=== PATIENT | female | born 1985 | race African-American/Black ===

== ENCOUNTER 2016-11-20 23:04 | Inpatient (IN) | payer MEDICAID ==
[2016-11-21 02:40] LABS: APPEARANCE,URINE TURBID; BILIRUBIN,URINE NEGATIVE (NEGATIVE); GLUCOSE, URINE NEGATIVE (NEGATIVE); KETONES,URINE NEGATIVE (NEGATIVE); LEUKOCYTE ESTERASE,URINE TRACE (NEGATIVE); NITRITE,URINE NEGATIVE (NEGATIVE); PROTEIN,URINE NEGATIVE (NEGATIVE); URINE SPECIFIC GRAVITY 1.019; UROBILINOGEN,URINE NEGATIVE mg/dL (<2.0)
[2016-11-21 03:16] LABS: HEMATOCRIT 43.9 % (36.0-47.0); HEMOGLOBIN 13.9 g/dL (12.0-15.5); HGB HCT DIFFERENCE -2.2; MEAN CORPUSCULAR HEMOGLOBIN 26.9 pg (27.0-33.4); MEAN CORPUSCULAR HGB CONC 31.6 g/dL (32.0-36.0); MEAN CORPUSCULAR VOLUME 85 fl (80-97); RED BLOOD COUNT 5.16 10^6/uL (3.72-5.28); RED CELL DISTRIBUTION WIDTH 14.8 % (11.5-14.0); WHITE BLOOD COUNT 17.5 10^3/uL (4.0-10.5)
[2016-11-21 03:19] LABS: BAND NEUTROPHILS % (MANUAL) 3 % (3-5); BASOPHILS % (MANUAL) 0 % (0-2); EOSINOPHILS % (MANUAL) 0 % (0-6); LYMPHOCYTES % (MANUAL) 6 % (13-45); TOTAL CELLS COUNTED 100
[2016-11-21 03:20] LABS: ANISOCYTOSIS SLIGHT; BURR CELLS SLIGHT; HYPOCHROMASIA SLIGHT; OVALOCYTES SLIGHT; POIKILOCYTOSIS SLIGHT; TEAR DROP CELLS SLIGHT; TOXIC GRANULATION SLIGHT
[2016-11-21 03:42] LABS: ALANINE AMINOTRANSFERASE 666 U/L (9-52); ALBUMIN 3.9 g/dL (3.5-5.0); ALKALINE PHOSPHATASE 278 U/L (38-126); ANION GAP 12 (5-19); ASPARTATE AMINO TRANSFERASE 622 U/L (14-36); BILIRUBIN,TOTAL 1.1 mg/dL (0.2-1.3); BLOOD UREA NITROGEN 13 mg/dL (7-20); CALCIUM 9.5 mg/dL (8.4-10.2); CARBON DIOXIDE 24 mmol/L (22-30); CHLORIDE 106 mmol/L (98-107); CREATININE RESULT 0.77 mg/dL (0.52-1.25); GLUCOSE 103 mg/dL (75-110); LIPASE 44.7 U/L (23-300); POTASSIUM 4.6 mmol/L (3.6-5.0); SODIUM 142.1 mmol/L (137-145)
--- NOTE | 2016-11-21 03:49 | ER Document Report ---
ED General - General Chief Complaint: Abdominal Pain Stated Complaint: MIDDLE ABDOMINAL PAIN Notes: Patient is 31-year-old female presents with complaint of upper abdominal pain. She points to mainly the epigastric and right upper quadrant of her abdomen as to where the pain has been. Started today. Some nausea. Some diarrhea. Patient did have a emergency 30 days ago. She's had no complications from that. She denies having pain like this in the past. She denies any lower abdominal pain. No blood in her stool. No other complaints at this time. TRAVEL OUTSIDE OF THE [place] IN LAST 30 DAYS: No - Related Data Allergies/Adverse Reactions: No Known Allergies Allergy (Verified 08/19/16 09:21) Past Medical History - Social History Smoking Status: Unknown if Ever Smoked Frequency of alcohol use: None Drug Abuse: None Family History: Reviewed & Not Pertinent Patient has suicidal ideation: No Patient has homicidal ideation: No Renal/ Medical History: Denies: Hx Peritoneal Dialysis - Immunizations Hx Diphtheria, Pertussis, Tetanus Vaccination: Yes Review of Systems - Review of Systems Notes: My Normal Review Basic REVIEW OF SYSTEMS: CONSTITUTIONAL : Denies fever, chills, or sweats. Denies recent illness. CARDIOVASCULAR: Denies chest pain. RESPIRATORY: Denies cough, cold, or chest congestion. Denies shortness of breath, difficulty breathing, or wheezing. GASTROINTESTINAL: Moderate upper abdominal pain. Some nausea and diarrhea.. Denies constipation. GENITOURINARY: Denies difficulty urinating, painful urination, burning, frequency, or blood in urine. FEMALE GENITOURINARY: Denies vaginal bleeding, abnormal or irregular periods. MUSCULOSKELETAL: Denies neck or back pain or joint pain or swelling. SKIN: Denies rash or skin lesions. NEUROLOGICAL: Denies altered mental status or loss of consciousness. Denies headache. Denies weakness or paralysis or loss of use of either side. Denies problems with gait or speech. Denies sensory or motor loss. ALL OTHER SYSTEMS REVIEWED AND NEGATIVE. Physical Exam - Vital signs Vitals: Temp Pulse Resp BP Pulse Ox 97.6 F 98 18 149/89 H 99 11/20/16 23:15 11/20/16 23:15 11/20/16 23:15 11/20/16 23:15 11/20/16 23:15 - Notes Notes: General Appearance: Well nourished, alert, cooperative, no acute distress, mild to moderate obvious discomfort. Vitals: reviewed, See vital signs table. Head: no swelling or tenderness to the head Eyes: PERRL, EOMI, Conjuctiva clear Mouth: No decreasd moisture Neck: Supple, no neck tenderness, No thyromegaly Lungs: No wheezing, No rales, No rhonci, No accessory muscle use, good air exchange bilaterally. Heart: Normal rate, Regular rythm, No murmur, no rub Abdomen: Normal BS, soft, No rigidity, mild upper abdominal tenderness to palpation. No lower abdominal tenderness to palpation., No guarding, no rebound , no abdominal masses, no organomegaly Extremities: strength 5/5 in all extremities, good pulses in all extremities, no swelling or tenderness in the extremities, no edema. Skin: warm, dry, appropriate color, no rash Neuro: speech clear, oriented x 3, normal affect, responds appropriately to questions. Course - Vital Signs Vital signs: Temp Pulse Resp BP Pulse Ox 98.6 F 91 16 132/86 H 100 11/21/16 03:23 11/21/16 03:23 11/21/16 03:23 11/21/16 03:23 11/21/16 03:23 - Laboratory Result Diagrams: 11/21/16 02:20 11/21/16 03:00 Laboratory results interpreted by me: 11/21/16 11/21/16 11/21/16 01:45 02:20 03:00 WBC 17.5 H MCH 26.9 L MCHC 31.6 L RDW 14.8 H Seg Neuts % (Manual) 84 H Lymphocytes % (Manual) 6 L Abs Neuts (Manual) 15.2 H AST 622 H ALT 666 H Alkaline Phosphatase 278 H Ur Leukocyte Esterase TRACE H Urine Ascorbic Acid 40 H - Transfer of Care Notes: 11/21/16 05:21 Patient has elevated liver enzymes, leukocytosis, and cholelithiasis. I think this is most likely why the patient 7 diarrhea, vomiting, and upper abdominal pain. I did speak with Dr. Siu, general surgeon, who agrees to come evaluate the patient. Discharge - Discharge Clinical Impression: Cholelithiasis Qualifiers: Cholelithiasis location: gallbladder Cholecystitis presence: without cholecystitis Biliary obstruction: without biliary obstruction Qualified Code(s) : K80.20 - Calculus of gallbladder without cholecystitis without obstruction Leukocytosis Qualifiers: Leukocytosis type: unspecified Qualified Code(s): D72.829 - Elevated white blood cell count, unspecified Condition: Stable Disposition: ADMITTED INPATIENT Admitting Provider: Surgicalist Unit Admitted: Surgical Floor Referrals: CHUCHO KEEN MD [Primary Care Provider] - Follow up as needed
[2016-11-21] MEDS ORDERED: ERTAPENEM SODIUM INJ 1 GM VIAL IV ONE (05:20)
[2016-11-21] MEDS ORDERED: NORMAL SALINE 1000 ML 1,000 ML IV ONE (05:40)
[2016-11-21] MEDS ORDERED: ONDANSETRON HCL INJ/PF 4 MG/2 ML SDV IV PRN (06:11)
[2016-11-21] MEDS ORDERED: MORPHINE SULFATE 10 MG/ML INJ IV PRN (06:11)
--- NOTE | 2016-11-21 06:23 | PDOC H&P ---
History of Present Illness Admission Date/PCP: CHUCOH KEEN MD abdominal pain nausea and vomiting History of Present Illness: EWELINA ALEX is a 31 year old female presents to the emergency department via EMS complaining of abdominal pain nausea and vomiting. Symptoms started approximate 48 hours ago. She denies previous episodes. She denies history of trauma, history of GI problems, or change in her bowel habits. Today her pain was worse into the emergency department where she was found to have significant right upper quadrant tenderness, leukocytosis and abnormal liver function studies. Gallbladder ultrasound revealed cholelithiasis. Surgery was consulted and she was advised admission Patient's stools have been loose today. She is one-month status post section, also [facility], by Dr. Rashi Farnsworth. Social History Smoking Status: Unknown if Ever Smoked Family History Family History: Reviewed & Not Pertinent Parental Family History Reviewed: Yes Children Family History Reviewed: Yes Sibling(s) Family History Reviewed.: Yes Medication/Allergy Home Medications: Pnv W-O Ca No5/Fe Fumarate/FA [-U Capsule] 1 each PO DAILY 06/12/12 Acetaminophen with Codeine [Tylenol #3 Tablet] 1 each PO Q4HP PRN #30 tablet Docusate Sodium [Colace 100 mg Capsule] 100 mg PO BID #90 capsule 10/17/16 Pnv W-O Ca No5/Fe Fumarate/FA [-U Multiple Vitamin Capsule] 1 cap PO DAILY #90 capsule 10/17/16 Allergies/Adverse Reactions: No Known Allergies Allergy (Verified 08/19/16 09:21) Review of Systems Constitutional: PRESENT: as per HPI Eyes: ABSENT: visual disturbances Ears: ABSENT: hearing changes Breasts: PRESENT: other - Edematous consistent with Cardiovascular: ABSENT: chest pain, dyspnea on exertion, edema, orthropnea, palpitations Respiratory: ABSENT: cough, hemoptysis Gastrointestinal: PRESENT: other - As per history of present illness Integumentary: ABSENT: rash, wounds Neurological: ABSENT: abnormal gait, abnormal speech, confusion, dizziness, focal weakness, syncope Endocrine: ABSENT: cold intolerance, heat intolerance, polydipsia, polyuria Hematologic/Lymphatic: ABSENT: easy bleeding, easy bruising Physical Exam Vital Signs: Temp Pulse Resp BP Pulse Ox 98.6 F 91 16 132/86 H 100 11/21/16 03:23 11/21/16 03:23 11/21/16 03:23 11/21/16 03:23 11/21/16 03:23 Intake & Output 11/19/16 11/20/16 11/21/16 06:59 06:59 06:59 Weight 88.1 kg General appearance: PRESENT: no acute distress Head exam: PRESENT: normocephalic Eye exam: PRESENT: EOMI Ear exam: PRESENT: normal external ear exam Mouth exam: PRESENT: moist Neck exam: PRESENT: full ROM Respiratory exam: PRESENT: clear to auscultation elisabeth Cardiovascular exam: PRESENT: RRR Pulses: PRESENT: normal carotid pulses, normal radial pulses, normal femoral pulses Vascular exam: PRESENT: normal capillary refill GI/Abdominal exam: PRESENT: other - Minimal right upper quadrant tenderness. No peritoneal signs no rigidity. Abdomen is not distended. Well-healed Pfannenstiel incision. Rectal exam: PRESENT: deferred Extremities exam: PRESENT: full ROM Musculoskeletal exam: PRESENT: full ROM Psychiatric exam: PRESENT: normal mood Results Laboratory Results: 11/21/16 02:20 11/21/16 03:00 11/21/16 11/21/16 11/21/16 01:45 02:20 02:20 WBC 17.5 H RBC 5.16 Hgb 13.9 Hct 43.9 MCV 85 MCH 26.9 L MCHC 31.6 L RDW 14.8 H Plt Count 297 Seg Neutrophils % Not Reportable Lymphocytes % Not Reportable Monocytes % Not Reportable Eosinophils % Not Reportable Basophils % Not Reportable Absolute Neutrophils Not Reportable Absolute Lymphocytes Not Reportable Absolute Monocytes Not Reportable Absolute Eosinophils Not Reportable Absolute Basophils Not Reportable Sodium Cancelled Potassium Cancelled Chloride Cancelled Carbon Dioxide Cancelled Anion Gap Cancelled BUN Cancelled Creatinine Cancelled Est GFR ( Amer) Cancelled Est GFR (Non-Af Amer) Cancelled Glucose Cancelled Calcium Cancelled Total Bilirubin Cancelled AST Cancelled ALT Cancelled Alkaline Phosphatase Cancelled Total Protein Cancelled Albumin Cancelled Lipase Cancelled Serum HCG, Qual Urine Color PAM Urine Appearance TURBID Urine pH 5.0 Ur Specific [place] 1.019 Urine Protein NEGATIVE Urine Glucose (UA) NEGATIVE Urine Ketones NEGATIVE Urine Blood NEGATIVE Urine Nitrite NEGATIVE Ur Leukocyte Esterase TRACE H Urine WBC (Auto) 4 Urine RBC (Auto) 0 11/21/16 11/21/16 02:20 03:00 WBC RBC Hgb Hct MCV MCH MCHC RDW Plt Count Seg Neutrophils % Lymphocytes % Monocytes % Eosinophils % Basophils % Absolute Neutrophils Absolute Lymphocytes Absolute Monocytes Absolute Eosinophils Absolute Basophils Sodium 142.1 Potassium 4.6 Chloride 106 Carbon Dioxide 24 Anion Gap 12 BUN 13 Creatinine 0.77 Est GFR ( Amer) > 60 Est GFR (Non-Af Amer) > 60 Glucose 103 Calcium 9.5 Total Bilirubin 1.1 AST 622 H ALT 666 H Alkaline Phosphatase 278 H Total Protein 8.0 Albumin 3.9 Lipase 44.7 Serum HCG, Qual NEGATIVE Urine Color Urine Appearance Urine pH Ur Specific [place] Urine Protein Urine Glucose (UA) Urine Ketones Urine Blood Urine Nitrite Ur Leukocyte Esterase Urine WBC (Auto) Urine RBC (Auto) Impressions: Abdomen Ultrasound 11/21/16 03:46 IMPRESSION: Small cholelithiasis. Assessment & Plan - Diagnosis (1) Cholelithiasis Qualifiers: Cholelithiasis location: gallbladder Cholecystitis presence: without cholecystitis Biliary obstruction: without biliary obstruction Qualified Code(s): K80.20 - Calculus of gallbladder without cholecystitis without obstruction Is this a current diagnosis for this admission?: YesPlan: 1. Patient presented to the emergency department with symptomatic cholelithiasis with cholecystitis. She has a leukocytosis, and abnormal liver function studies. Her gallbladder ultrasound reveals cholelithiasis and normal common bile duct. I believe her acute presentation is most consistent with symptomatic gallbladder disease, and warrants interval cholecystectomy. 2. Will admit patient to surgical service, keep nothing by mouth, on IV fluids. On coming general surgeon will evaluate patient, and discuss plans for surgical intervention. (2) Delivery by emergency caesarean section Is this a current diagnosis for this admission?: YesPlan: 1. Despite recent delivery the patient has done well over the past month, by her report, and section incision should not pose a significant problem to planned interval cholecystectomy. - Time Time Spent: 30 to 50 Minutes Medications reviewed and adjusted accordingly: Yes Anticipated discharge: Home Within: within 48 hours - Inpatient Certification Based on my medical assessment, after consideration of the patient's comorbidities, presenting symptoms, or acuity I expect that the services needed warrant INPATIENT care.: Yes I certify that my determination is in accordance with my understanding of Medicare's requirements for reasonable and necessary INPATIENT services [42 CFR 412.3e].: Yes Medical Necessity: Need For IV Fluids, Need for Pain Control, Need for IV Antibiotics, Need for Surgery
[2016-11-21] MEDS: DEXTROSE 5%-LACTATED RINGERS 1,000 ML IV PRN ×2 (07:05→14:40)
--- NOTE | 2016-11-21 09:16 | PDOC PROGRESS REPORT ---
Subjective Progress Note for:: 11/21/16 Subjective:: Pain resolved. Feels well. Physical Exam Vital Signs: Temp Pulse Resp BP Pulse Ox 98.6 F 94 18 132/84 H 98 11/21/16 07:13 11/21/16 07:13 11/21/16 07:13 11/21/16 07:13 11/21/16 07:13 General appearance: PRESENT: no acute distress Respiratory exam: PRESENT: clear to auscultation elisabeth Cardiovascular exam: PRESENT: RRR GI/Abdominal exam: PRESENT: other - Soft, nondistended, nontender to palpation. Extremities exam: PRESENT: other - No swelling. Results Impressions: Abdomen Ultrasound 11/21/16 03:46 IMPRESSION: Small cholelithiasis. Assessment & Plan - Diagnosis (1) Cholelithiasis Qualifiers: Cholelithiasis location: gallbladder Cholecystitis presence: without cholecystitis Biliary obstruction: without biliary obstruction Qualified Code(s): K80.20 - Calculus of gallbladder without cholecystitis without obstruction Is this a current diagnosis for this admission?: YesPlan: Most likely choledocholithiasis since patient does have significant liver function study elevations. No cholecystitis since patient is asymptomatic at this time. I will consult GI for ERCP. Following ERCP we'll plan laparoscopic cholecystectomy.
--- NOTE | 2016-11-21 11:36 | Physician Advisory Note ---
Physician Advisor ProgressNote .: Pursuant to the plan for [facility], I have reviewed the medical record for this patient. Physician Advisor Statement: Possible documentation opportunities if attending agrees: 1. Please document what you are concerned might happen if pt were not kept in hospital at this time - "risk of ascending cholangitis", ..... 2. ?"SIRS, present on arrival, due to choledocholithiasis" As always, if concerned about any unstable VS or abnormal labs, please comment on them & note what doing about them, & please document each day the potential clinical problems you are concerned could occur if pt not kept in hospital for tx at this time. Discussion: 31yo lactating female s/p emergency C/S 30 days prior - presented 11/21 early AM to ED w/epig/RUQ pain, N/V, ongoing x48hrs. (+) HR 98, R18, BP 149/89, WBC 17.5, AST 622, ALT 666, AP 278. U/S = small gallstone, 0.5cm diam CBD. No wall thickening. Attending ordered NPO, IV Ancef, prn IV morphine/Zofran. Arranging for ERCP. Status: Pt in "mild to mod obvious discomfort" in ED, surgeon has ordered IV Ancef, NS @ 200 then D5LR @150, prn IV morphine/Zofran, NPO, "interval cholecystectomy" after ERCP. Met SIRS criteria on arrival with tachycardia & leukocytosis. Pt is not yet ordered for re-check of labs. Attending does not believe she has acute cholecystitis. Pt has not needed any pain meds at all so far. Discussed with today's attending. He reports plan for ERCP today (therefore NPO /IVF, current IV abx are pre-procedural for ERCP & because of choledocholithiasis), & then continued NPO status until lap yahir tomorrow. Will likely re-check LFTs after ERCP. He reports concern for development of ascending cholangitis if pt not treated promptly in this manner. Suspects likely d/c home tomorrow after lap yahir. Her being post-/, & lactating, does not increase her surgical risks per attending. Based on this info, pt very appropriate to come in for recommended tx/procedures , but most appropriate for Outpt Obs status based on severity of illness/risks so far. If pt's condition changes, she develops worsening labs/continued tachycardia or other instability of vital signs, other concerning complications, ... & continued tx in inpatient hospital setting is medically reasonable & necessary to protect pt's health, safety, & medical condition, then please document explicitly the clinical concerns & then may consider Inpatient status order. Thanks for your help with documentation accuracy/specificity improvement! Korina Senior MD [facility] Physician Advisor, Fellow of Hospital Medicine
[2016-11-21] MEDS ORDERED: CEFAZOLIN SODIUM 1 GM in DEXTROSE 5%-WATER 50 ML IV SCH (14:00)
[2016-11-21] MEDS: CEFAZOLIN SODIUM 1 GM in DEXTROSE 5%-WATER 50 ML IV SCH ×2 (14:38→22:07)
[2016-11-21] MEDS ORDERED: PROMETHAZINE HCL INJ 25 MG/1 ML VIAL ONE (15:22)
[2016-11-21] MEDS ORDERED: NALOXONE HCL INJ/PF 0.4 MG/1 ML SDV ONE (15:22)
[2016-11-21] MEDS ORDERED: FLUMAZENIL INJ 0.5 MG/5 ML VIAL IV ONE (15:23)
[2016-11-21] MEDS ORDERED: EPINEPHRINE INJ 1 MG/10 ML DISP.SYRIN ONE (15:23)
[2016-11-21] MEDS ORDERED: FENTANYL CITRATE INJ/PF 100 MCG/2 ML AMPUL ONE (15:23)
[2016-11-21] MEDS ORDERED: GLUCAGON,HUMAN RECOMB 1 MG INJ ONE (15:23)
--- NOTE | 2016-11-21 18:29 | PDOC CONSULTATION ---
Consultation Consult Date: 11/20/16 History of Present Illness Admission Date/PCP: 11/21/16 06:10 CHUCHO KEEN MD History of Present Illness: This is a 31-year-old patient admitted with 3 day history of epigastric pain, nausea, and vomiting. The pain comes and goes and lasted for 2 hours on one occasion. On admission her transaminases and alkaline phosphatase were elevated with a normal lipase. Her ultrasound showed multiple small gallstones. She had a baby in October. She had one episode of similar pain during her but this only lasted for one night and she did not have any blood work at that time. Social History Smoking Status: Never Smoker Frequency of Alcohol Use: None Drugs: None Hx Prescription Drug Abuse: No - Advance Directive Resuscitation Status: Full Code Family History Family History: Reviewed & Not Pertinent Parental Family History Reviewed: No Children Family History Reviewed: NA Sibling(s) Family History Reviewed.: NA Medication/Allergy Home Medications: Pnv W-O Ca No5/Fe Fumarate/FA [-U Multiple Vitamin Capsule] 1 cap PO DAILY 11/21/16 Allergies/Adverse Reactions: No Known Allergies Allergy (Verified 08/19/16 09:21) Review of Systems All systems: reviewed and no additional remarkable complaints except as stated Physical Exam Vital Signs: Temp Pulse Resp BP Pulse Ox 98.1 F 88 14 122/70 99 11/21/16 15:20 11/21/16 15:20 11/21/16 15:20 11/21/16 15:20 11/21/16 15:20 Intake & Output 11/20/16 11/21/16 11/22/16 06:59 06:59 06:59 Intake Total 300 Balance 300 Weight 88.8 kg Exam: General: Patient is alert and looks well. HEENT: There is no pallor or jaundice. PERRLA. Oropharynx normal Respiratory: No chest deformity. No respiratory distress. Chest wall palpitation was unremarkable. Breath sounds were normal Cardiovascular: Heart sounds 1 and 2 normal with no murmurs. Abdominal: Not distended. Soft and nontender. Liver and spleen not palpable. No ascites demonstrated. Bowel sounds active. Rectal examination was deferred. Extremities: No edema Neurological: Alert and oriented x4. Grossly nonfocal. Normal speech Skin: No significant rash Psychological: Normal affect Results Impressions: Abdomen Ultrasound 11/21/16 03:46 IMPRESSION: Small cholelithiasis. Assessment & Plan - Diagnosis (1) Epigastric abdominal pain Is this a current diagnosis for this admission?: YesPlan: Her recurrent abdominal pain with elevated liver function tests and gallstones is suggestive of choledocholithiasis. The need for an ERCP was explained to the patient and she is in agreement (2) Abnormal liver function Is this a current diagnosis for this admission?: Yes (3) Nausea and vomiting in adult Is this a current diagnosis for this admission?: Yes (4) Cholelithiasis Qualifiers: Cholelithiasis location: gallbladder Cholecystitis presence: without cholecystitis Biliary obstruction: without biliary obstruction Qualified Code(s): K80.20 - Calculus of gallbladder without cholecystitis without obstruction Is this a current diagnosis for this admission?: YesPlan: There is plan for cholecystectomy tomorrow
[2016-11-21] MEDS: MIDAZOLAM 2 MG/2 ML INJ ONE ×2 (18:47→18:56)
--- NOTE | 2016-11-21 19:14 | Operative Report ---
Operative Report DATE OF SURGERY: 11/21/16 Operative Report: Pre-op diagnosis: Abdominal pain, gallstones, and elevated LFTs Post-op diagnosis: Common bile duct sludge Surgery: ERCP with sphincterotomy and balloon sludge extraction Medications: Versed 3 mg Fentanyl 100 mcg IV push Tissue removed: None Procedure: After informed consent obtained from patient, the throat was sprayed with Hurricane and conscious sedation was achieved. The ERCP endoscope was then inserted into the esophagus blindly and advanced into the stomach. The duodenum was entered and the ampulla was identified. Using the triple-lumen sphincterotomy catheter the common bile duct was freely cannulated. A cholangiogram was obtained which showed possible filling defect in the distal common bile duct. The common bile duct and intrahepatic ducts did not appear dilated. A good sized sphincterotomy was then performed using the endocut mode. The catheter was removed over the guidewire before a 9-12 mm balloon catheter was inserted. The balloon was inflated to 12 mm in the proximal common bile duct and pulled down the duct. Some sludge was extracted. The duct was swept one more time. A balloon occlusion cholangiogram was normal. The pancreatic duct was intentionally not cannulated. Patient tolerated procedure well. Findings Common bile duct: Small sized with small amount of sludge and a long cystic duct Intrahepatic ducts: Normal Pancreatic duct: Not cannulated Plan: Proceed with cholecystectomy. Indomethacin 100 mg per rectum giving postoperatively OPERATION: .
[2016-11-21] MEDS: INDOMETHACIN 50 MG SUPP.RECT PR ONE ×2 (19:34→21:14)
[2016-11-22] MEDS: DEXTROSE 5%-LACTATED RINGERS 1,000 ML IV PRN ×3 (01:24→17:42)
[2016-11-22] MEDS: CEFAZOLIN SODIUM 1 GM in DEXTROSE 5%-WATER 50 ML IV SCH ×3 (06:18→21:28)
[2016-11-22 07:13] LABS: HEMATOCRIT 36.3 % (36.0-47.0); HGB HCT DIFFERENCE -2.1; MEAN CORPUSCULAR HEMOGLOBIN 27.1 pg (27.0-33.4); MEAN CORPUSCULAR HGB CONC 31.4 g/dL (32.0-36.0); MEAN CORPUSCULAR VOLUME 86 fl (80-97); RED BLOOD COUNT 4.22 10^6/uL (3.72-5.28); WHITE BLOOD COUNT 8.1 10^3/uL (4.0-10.5)
[2016-11-22 07:28] LABS: ALBUMIN 2.8 g/dL (3.5-5.0); BILIRUBIN,TOTAL 0.8 mg/dL (0.2-1.3); TOTAL PROTEIN 5.9 g/dL (6.3-8.2)
[2016-11-22 07:30] LABS: HEMOGLOBIN 11.4 g/dL (12.0-15.5)
[2016-11-23] MEDS: CEFAZOLIN SODIUM 1 GM in DEXTROSE 5%-WATER 50 ML IV SCH (05:18)
[2016-11-23] MEDS ORDERED: HYDROMORPHONE HCL INJ/PF 2 MG/ML AMPULE ONE (07:16)
[2016-11-23] MEDS ORDERED: FENTANYL CITRATE INJ/PF 250 MCG/5 ML AMPULE ONE (07:16)
[2016-11-23] MEDS ORDERED: LIDOCAINE 1% INJ-PF (10 MG/ML) 30 ML SDV ONE (07:16)
[2016-11-23] MEDS ORDERED: MIDAZOLAM 2 MG/2 ML INJ ONE (07:16)
[2016-11-23] MEDS ORDERED: BUPIVACAINE HCL 0.25% /EPINEPHRINE INJ/PF 30 ML SDV ONE (07:16)
[2016-11-23] MEDS ORDERED: EPHEDRINE SULFATE INJ 50 MG/1 ML AMPULE ONE (07:17)
[2016-11-23] MEDS ORDERED: ACETAMINOPHEN 100 ML IV ONE (07:17)
[2016-11-23] MEDS ORDERED: DEXMEDETOMIDINE INJ 80 MCG/20 ML VIAL IV ONE (07:17)
[2016-11-23] MEDS ORDERED: PROPOFOL INJ 200 MG/20 ML VIAL IV ONE (07:17)
[2016-11-23] MEDS ORDERED: MORPHINE SULFATE 10 MG/ML INJ IV PRN (08:35)
[2016-11-23] MEDS ORDERED: ONDANSETRON HCL INJ/PF 4 MG/2 ML SDV IV PRN (08:35)
[2016-11-23] MEDS ORDERED: FENTANYL CITRATE INJ/PF 100 MCG/2 ML AMPUL IV PRN ×3 (08:35)
[2016-11-23] MEDS ORDERED: PROMETHAZINE HCL INJ 25 MG/1 ML VIAL IV PRN ×2 (08:35)
[2016-11-23] MEDS ORDERED: MEPERIDINE HCL/PF INJ 25 MG/1 ML DISP.SYRIN IV PRN (08:35)
[2016-11-23] MEDS ORDERED: KETOROLAC TROMETHAMINE INJ/PF 30 MG/1 ML SDV ONE (09:30)
[2016-11-23] MEDS: FENTANYL CITRATE INJ/PF 100 MCG/2 ML AMPUL ONE ×2 (09:48→09:53)
--- NOTE | 2016-11-23 10:37 | PDOC PROGRESS REPORT ---
Subjective Progress Note for:: 11/22/16 Subjective:: s/p ERCP c stones/sludge in CBD. -n/v, +flatus. hungry. no pain. Physical Exam Vital Signs: Temp Pulse Resp BP Pulse Ox 97.2 F 54 L 14 139/89 H 100 11/23/16 09:23 11/23/16 10:08 11/23/16 10:08 11/23/16 10:08 11/23/16 10:08 Intake & Output 11/22/16 11/23/16 11/24/16 06:59 06:59 06:59 Intake Total 2760 800 500 Output Total 0 500 Balance 2760 800 0 Weight 88.8 kg 94 kg General appearance: PRESENT: no acute distress Eye exam: PRESENT: EOMI Respiratory exam: PRESENT: unlabored GI/Abdominal exam: PRESENT: soft. ABSENT: distended, tenderness Neurological exam: PRESENT: alert, oriented to situation Results Laboratory Results: 11/22/16 06:38 11/23/16 07:12 Blood Type O POSITIVE Antibody Screen NEGATIVE Impressions: Catheter Placement 11/21/16 00:00 IMPRESSION: IMAGES OBTAINED DURING PROCEDURE. Fluoroscopy 11/21/16 00:00 IMPRESSION: IMAGES OBTAINED DURING PROCEDURE. Abdomen Ultrasound 11/21/16 03:46 IMPRESSION: Small cholelithiasis. Assessment & Plan - Diagnosis (1) Choledocholithiasis Is this a current diagnosis for this admission?: YesPlan: doing well. npo at [place]. We discussed laparoscopic cholecystectomy in detail. Questions were answered. We discussed the risks, benefits and alternatives including , heart attack, stroke, blood clots in the legs, blood clots in lungs, pneumonia, bleeding, infection, hernia, bile leak, failure of symptoms to resolve, long-term diarrhea, damage to surrounding structures such as bladder , bowels, blood vessels or bile duct resulting in serious long-term health issues. Understands and wishes to proceed with laparoscopic cholecystectomy in the morning.
--- NOTE | 2016-11-23 10:39 | PDOC PROGRESS REPORT ---
Subjective Progress Note for:: 11/23/16 Subjective:: No nausea, vomiting, fevers, chills. Ready for surgery. Physical Exam Vital Signs: Temp Pulse Resp BP Pulse Ox 97.2 F 54 L 14 139/89 H 100 11/23/16 09:23 11/23/16 10:08 11/23/16 10:08 11/23/16 10:08 11/23/16 10:08 Intake & Output 11/22/16 11/23/16 11/24/16 06:59 06:59 06:59 Intake Total 2760 800 500 Output Total 0 500 Balance 2760 800 0 Weight 88.8 kg 94 kg General appearance: PRESENT: no acute distress Head exam: PRESENT: normocephalic Eye exam: PRESENT: EOMI Respiratory exam: PRESENT: clear to auscultation elisabeth Cardiovascular exam: PRESENT: RRR GI/Abdominal exam: PRESENT: soft. ABSENT: distended, tenderness Neurological exam: PRESENT: alert, oriented to person, oriented to place, oriented to time, oriented to situation Psychiatric exam: PRESENT: appropriate affect, normal mood Results Laboratory Results: 11/22/16 06:38 11/23/16 07:12 Blood Type O POSITIVE Antibody Screen NEGATIVE Impressions: Catheter Placement 11/21/16 00:00 IMPRESSION: IMAGES OBTAINED DURING PROCEDURE. Fluoroscopy 11/21/16 00:00 IMPRESSION: IMAGES OBTAINED DURING PROCEDURE. Abdomen Ultrasound 11/21/16 03:46 IMPRESSION: Small cholelithiasis. Assessment & Plan - Diagnosis (1) Choledocholithiasis Is this a current diagnosis for this admission?: YesPlan: We again discussed the surgery in detail. Questions were answered. She wishes to proceed with laps Cholecystectomy.
--- NOTE | 2016-11-23 10:42 | Operative Report ---
Operative Report DATE OF SURGERY: 11/21/16 PREOPERATIVE DIAGNOSIS: Cholelithiasis, choledocholithiasis. POSTOPERATIVE DIAGNOSIS: Cholelithiasis, choledocholithiasis. OPERATION: Laparoscopic cholecystectomy SURGEON: KEYONA HOYT ANESTHESIA: GA TISSUE REMOVED OR ALTERED: Gallbladder COMPLICATIONS: None noted ESTIMATED BLOOD LOSS: minimal INTRAOPERATIVE FINDINGS: Gallbladder with sludge PROCEDURE: The patient was brought to the operative suite and placed supine on the OR table. Timeout was performed. Antibiotics were administered. Padding and positioning was appropriate. The patient was induced, intubated and maintained on general endotracheal anesthesia throughout the procedure. Patient was prepped and draped in the normal sterile fashion. The skin above the umbilicus was infiltrated with local anesthetic. A 5 mm incision was made. A Woodrow and Adson were used to dissect down to the level of the fascia, grasped the fascia and elevate it. The Veress needle was placed. Satisfactory water drop test was performed. Low flow insufflation was connected and yielded low opening pressure. Insufflation was advanced to high flow and pneumoperitoneum of 15 mmHg was obtained and maintained with procedure. Trocar and camera were placed through this incision confirming entry into the abdominal cavity without incident. Next the 11 mm epigastric and the two 5 mm right subcostal trochars were placed in the normal location and fashion under direct visualization, after infiltration with local anesthetic. Instruments were introduced. The abdominal cavity was surveyed and appeared normal. The fundus of the gallbladder was elevated over the liver edge. The dissection the gallbladder began on the lateral aspect. Dissection continued down to the triangle of Calot. The cystic artery and the cystic duct were dissected out and seen to be clearly entering the gallbladder with no obscuration. The cystic duct was clipped adjacent to the gallbladder. A ductotomy was made. Return of bile confirmed cystic duct. The cystic duct was clipped 2 times proximally and divided between clips. The cystic artery was clipped twice proximally and once distally against the gallbladder and divided between the clips. The gallbladder was removed from the gallbladder fossa with hook electrocautery. It was placed in an Endo Catch bag and removed through the epigastric trocar site. It was sent to pathology for further analysis. The field was irrigated and suctioned. The field was intact with no leakage of bile or blood. Clips were in place. The abdominal cavity was surveyed and was unremarkable. Trocar sites were infiltrated with more local anesthetic. The epigastric trocar site was closed at the level of the fascia with 0 Vicryl suture using the Endo Close needle. Pneumoperitoneum was released. Trochars were removed. Incisions were closed at the level of the skin with 4-0 Monocryl. The closed incisions were dressed with benzoin tincture, Steri-Strips and Band-Aids. All lap needle sponge counts were correct. The patient tolerated procedure well and was taken recovery in stable condition.
[2016-11-23] MEDS: DIPHENHYDRAMINE HCL 50 MG/ML VIAL IV PRN ×2 (11:28→11:39)
[2016-11-23] MEDS ORDERED: HYDROCODONE/ACETAMINOPHEN 5-325 MG TABLET PO PRN (12:32)
[2016-11-23] MEDS ORDERED: METOCLOPRAMIDE HCL INJ/PF 10 MG/2 ML SDV ONE (13:10)
[2016-11-23] MEDS ORDERED: LIDOCAINE 2% INJ-PF (20 MG/ML) 10 ML AMPUL ONE (13:10)
[2016-11-23] MEDS ORDERED: ONDANSETRON HCL INJ/PF 4 MG/2 ML SDV ONE (13:10)
[2016-11-23] MEDS ORDERED: ROCURONIUM BROMIDE INJ 50 MG/5 ML VIAL IV ONE (13:10)
[2016-11-23] MEDS ORDERED: SUCCINYLCHOLINE CHLORIDE INJ 200 MG/10 ML VIAL ONE (13:10)
[2016-11-23] MEDS ORDERED: GLYCOPYRROLATE INJ 0.4 MG/2 ML VIAL ONE (13:10)
[2016-11-23] MEDS ORDERED: DEXAMETHASONE SOD PHOSPHATE INJ 4 MG/1 ML VIAL ONE (13:10)
[2016-11-23] MEDS ORDERED: KETOROLAC TROMETHAMINE 60 MG/2 ML SDV ONE (13:10)
[2016-11-23] MEDS ORDERED: NEOSTIGMINE METHYLSULFATE 10 MG/10 ML VIAL ONE (13:10)
[2016-11-24 15:17] VITALS: BP 141/90
--- NOTE | 2016-11-24 16:28 | DISCHARGE SUMMARY E ---
Discharge Summary NAME: EWELINA ALEX : 1985 AGE: 31Y ADMITTED: 11/21/2016 DISCHARGED: 11/24/2016 DISCHARGE DIAGNOSES: Status post lap yahir for cholelithiasis and status post ERCP for choledocholithiasis. HISTORY OF PRESENT ILLNESS AND HOSPITAL COURSE: This 31-year-old female who is recent presented to the emergency room with abdominal pain, nausea, and vomiting for 48 hours. Patient was seen in the emergency room where she was found to have marked right upper quadrant tenderness and guarding. Negative Hill's sign. Patient had laboratory data which revealed elevated liver function studies and she was admitted to the hospital and seen by Dr. Patel who performed an ERCP and removed common duct sludge, and then patient was taken to the operating room on 11/23/2016 for laparoscopic cholecystectomy. The patient's postop course was uneventful. She was started on clear liquids postop and advanced to regular diet which she tolerated well. Her incisions are clean, dry, and intact at this time. Her vital signs are stable. Patient is currently doing well and is now discharged home, and has been advised to followup with her [facility] in 3 days as her blood pressure is elevated with her blood pressure being 154/89. The patient is also to followup in 7-10 days with [facility] for followup post lap yahir. Patient has been given a prescription for Percocet and is now discharged home. DICTATING PHYSICIAN: SHANEL ZHENG M.D. [id number] PHY#: [id number] ID: [id number] JOB#: [id number] ACCT: [id number] cc:SHANEL ZHENG M.D., E. R. >
== END 2016-11-24 15:36 | disposition home or self-care (01) | DRG 769 ==
LOC: ER 23:04 → EH 11-21 06:10 → INTOOBSV 11-21 06:10 → UNDOADMIN 11-21 06:29 → EH 11-21 06:29 → 4S 11-21 08:30 → OBSVTOIN 11-21 18:30
PROVIDERS: ADMIT Surgery; ATTEND Surgery
PROC: 0FT44ZZ Resection of Gallbladder, Percutaneous Endoscopic Approach (ICD-10-PCS; principal; 2016-11-21 17:00)
PROC: 0F798ZZ Dilation of Common Bile Duct, Via Natural or Artificial Opening Endoscopic (ICD-10-PCS; 2016-11-21 17:00)
DX: O99.63 Diseases of the digestive system complicating the puerperium (principal); K80.20 Calculus of gallbladder without cholecystitis without obstruction
CPT/HCPCS: 36415; 43262; 43264; 74328; 76705; 790; 80053; 80076; 81001; 83690; 84703; 85025; 85027; 86850; 86900; 86901; 88304; 93976; 96365; 99285; G0378; J0131; J0171; J0330; J0690; J1100; J1170; J1335; J1610; J1885; J2250; J2310; J2405; J2550; J2704; J2765; J3010; J3490; J7030